=== PATIENT | female | born 1990 | race Caucasian/White ===

== ENCOUNTER 2021-04-22 14:56 | Outpatient (CLI) | payer OTHER, SELFPAY ==
[2021-04-22 15:35] LABS: Anion Gap 8 mmol/L (8-16); Blood Urea Nitrogen 7 mg/dL (7-17); Calcium 8.9 mg/dL (8.4-10.2); Carbon Dioxide 24 mmol/L (22-30); Chloride 101 mmol/L (98-107); Estimated Glomerular Filt Rate > 60; Glucose 84 mg/dL (65-110); Potassium 3.8 mmol/L (3.4-5.0); Sodium 133 mmol/L (137-145)
== END 2021-04-22 14:57 | disposition home or self-care (01) ==
LOC: ANHSURGERY 15:01
PROVIDERS: Anesthesiology; Visit Provider Obstetrics & Gynecology
DX: E11.9 Type 2 diabetes mellitus without complications (principal); Z01.818 Encounter for other preprocedural examination
CPT/HCPCS: 36415; 80048

== ENCOUNTER 2021-04-30 00:32 | Day surgery (SDC) | payer OTHER, SELFPAY ==
[2021-04-22 10:53] VITALS: BMI 40.6
--- NOTE | 2021-04-22 11:08 | PC.NURSE ---
Report to the Outpatient Waiting Room, entrance under the green pavilion located off [facility], at time 7:30 on date 04/30/21. OR Time: 9:30. - You will be asked a series of questions to screen for COVID 19 for your protection. - A mask is required within the hospital. - No visitors are allowed at this time. Patient visitors will be guided where to wait when not with patient. Preoperative COVID Testing Requirements: No COVID Test needed if: (proof is required; if not received patient will have Rapid Test prior to entry) - Patient has received COVID Vaccine at least 14 days prior to procedure date or - Patient has positive COVID test result within last 90 days of surgery date. COVID Test needed if above criteria is not met Patients may have clear liquids (water, carbonated beverages, clear teas, apple juice) until 3 hours prior to surgery (6:30) with a maximum of 20 ounces. - No food from midnight until time of surgery Take the following medications with a SIP of water the morning of surgery: LEVOTHYROXINE Medications to discontinue per physician: N/A Date to take last dose: N/A Please no make-up, nail frisian, hairspray, perfume, deodorant, or body powder the day of surgery. No jewelry (including any body piercings) or valuables the day of surgery, leave them at home. Please take a shower or bath the night before, or the morning of, surgery with an antibacterial soap. Wear comfortable, loose fitting clothing. - Jewelry must be removed prior to entering the operating room. Rings and piercings that are not removed may be cut off. - The hospital will not accept responsibility for valuables. - Please leave all valuables, including medications, at home the day of surgery. If you are going home after surgery, a licensed dedicated truck driver must drive you home. - NO public transportation without another adult. - We recommend that an adult stay with you for 24 hours following discharge. - We also recommend that you do not drive, make important decision, drink alcoholic beverages, or take any drugs that were not prescribed by your health care provider for at least 24 hours after your discharge time. Follow any additional instructions given to you from your surgeon. Telephone instructions given to NIKITA MAS and asked if any additional questions and then verbalized understanding. Patient advised to call surgeon office or pre surgery nurse liaison [phone] if any additional questions.
[2021-04-30 07:55] VITALS: BP 145/91; PULSE 105; RESP 20; TEMP 36.4; O2SAT 96
[2021-04-30] MEDS: ACETAMINOPHEN 500 MG TABLET 1000 MG PO (08:24)
[2021-04-30] MEDS: LACTATED RINGERS 1,000 ML 30 ML IV CONT (08:35)
--- NOTE | 2021-04-30 08:53 | P.PNAN_ITS ---
Anes - Initial Pre Proc Eval Procedure: Operation Date: 04/30/21 09:30 Proposed Procedures p Hysteroscopy with Endometrial Ablation - Hetal Claudio MD Date/Time: 04/30/21 08:53 Surgeon: Hetal Claudio MD Pre Op Diagnosis: menometrorrhagia, severe obesity Patient Data Age: 31 Gender: F Height: 1.75 m Weight: 125 kg Allergies Allergy/AdvReac Type Severity Reaction Status Date / Time clindamycin Allergy Severe SWELLING Verified 04/30/21 08:24 OF TONGUE doxycycline Allergy Severe Hives Verified 04/30/21 08:24 lincomycin Allergy Severe Hives Verified 04/30/21 08:24 nickel Allergy Severe Hives Verified 04/30/21 08:24 Penicillins Allergy Severe Hives Verified 04/30/21 08:24 Sulfa (Sulfonamide Allergy Severe Hives Verified 04/30/21 08:24 Antibiotics) Home Medications Medication Instructions Recorded Confirmed Type levothyroxine 50 mcg PO DAILY 04/22/21 04/30/21 History metformin 500 mg PO BID 04/22/21 04/30/21 History albuterol sulfate 2 puff INHALATION PRN PRN 04/30/21 04/30/21 History Patient hx anesthesia problems: none Family hx anesthesia problems: none Results Review: All pre-operative results and documents have been reviewed as part of the pre-operative evaluation. [facility] Past Medical History Medical History Asthma Hypothyroid Social History Social History Smoking packs per day: 1 Smoking cigarettes per day: 20.0 Years smoked: 14 Smoking pack-years: 14.00 Smoking status: Former smoker Tobacco type: cigarettes Smoking end date: 04/26/17 Alcohol intake: current Drinks per week: 3 Substance use: current Substance use type: marijuana Last use: 04/21/21 Living arrangements: with roommate(s) Spiritual care concerns: No Anes - Eval Final PreProcedure Day of Procedure 04/30/21 08:53 Patient weight: morbidly obese Heart: regular rate and rhythm Lungs: clear to auscultation Airway: Mallampati scale class II Neurological: alert and oriented Last oral intake: >/= 8 hours ASA classification: III Emergent: no Anesthetic plan: proceed Anesthesia type and monitoring: general GIVS and standard monitoring Results Review: All pre-operative results and documents have been reviewed as part of the pre-operative evaluation. Informed Consent: The patient's anesthetic plan and its attendant risks and benefits were discussed with the patient/family/POA. Questions were solicited and answers provided to the satisfaction of the patient/family/POA.
[2021-04-30 10:21] LABS: Glucose Point of Care 86 mg/dl (65-105)
--- NOTE | 2021-04-30 10:26 | PM.IMHP ---
H&P: HPI History of Present Illness Date/Time: 04/30/21 10:26 Chief Complaint: bleeding Narrative: Lupe is a 31yo G0 with tubes tied already with longstanding menometrorrhagia, benign EMB, and desiring ablation. US showed arcuate uterus. She also has PCOS and DM and hypothyroidism. Review of Systems Review of Systems: All systems reviewed & are unremarkable except as noted in HPI and below PMFSH Past Medical History Medical History Asthma Hypothyroid Social History Social History Smoking packs per day: 1 Smoking cigarettes per day: 20.0 Years smoked: 14 Smoking pack-years: 14.00 Smoking status: Former smoker Tobacco type: cigarettes Smoking end date: 04/26/17 Alcohol intake: current Drinks per week: 3 Substance use: current Substance use type: marijuana Last use: 04/21/21 Living arrangements: with roommate(s) Spiritual care concerns: No Meds Home Medications and Allergies Home Medications Medication Instructions Recorded Confirmed Type levothyroxine 50 mcg PO DAILY 04/22/21 04/30/21 History metformin 500 mg PO BID 04/22/21 04/30/21 History albuterol sulfate 2 puff INHALATION PRN PRN 04/30/21 04/30/21 History Allergies Allergy/AdvReac Type Severity Reaction Status Date / Time clindamycin Allergy Severe SWELLING Verified 04/30/21 08:24 OF TONGUE doxycycline Allergy Severe Hives Verified 04/30/21 08:24 lincomycin Allergy Severe Hives Verified 04/30/21 08:24 nickel Allergy Severe Hives Verified 04/30/21 08:24 Penicillins Allergy Severe Hives Verified 04/30/21 08:24 Sulfa (Sulfonamide Allergy Severe Hives Verified 04/30/21 08:24 Antibiotics) Vital Signs Vital Signs - 24 hr 04/30/21 07:55 Temperature 97.5 F L Pulse Rate 105 H Respiratory Rate 20 Blood Pressure 145/91 H Pulse Oximetry 96 Exam Const: General: no acute distress Resp: Effort & Inspection: normal respiratory effort Auscultation: clear to auscultation bilaterally Cardio: Rate: regular rate Rhythm: regular rhythm GI: GI Palp: Yes Soft to palpation Extrem: General: normal to inspection Assessment and Plan Assessment and plan (1) Menometrorrhagia: Code(s): N92.1 - Excessive and frequent menstruation with irregular cycle Status: Acute Additional Plan Discussed RBA of procedure. Discussed risk of failure of procedure, kaylie with arcuate uterus, but she desires to proceed. Consented for HSC and Kamila endometrial ablation.
--- NOTE | 2021-04-30 10:28 | WPDHPUPDATE1 ---
History and Physical Update Update Date/Time: 04/30/21 10:28 History and Physical has been reviewed, including an updated exam of the patient. There are NO changes in the patient's condition. Risks, benefits, and alternatives have been discussed and questions answered. Patient agrees to proceed with procedure.
[2021-04-30] MEDS: BUPIVACAINE/EPINEPHRINE 0.25% 10 ML VIAL INFILTRATE (10:48)
--- NOTE | 2021-04-30 11:03 | W.PM.PROC2 ---
Procedure Note - Detailed Date of Procedure 04/30/21 Pre-op Diagnosis menometrorrhagia Post-op Diagnosis same Procedure Performed Hysteroscopy and Kamila endometrial ablation Surgeon Hetal Claudio MD Porcelain Mixer none Anesthesia MAC and local Indications menorrhagia and/or menometrorrhagia Findings normal uterine cavity Description of Procedure The patient was taken to the operating room and placed in supine position. She received MAC anesthesia and was placed in dorsal lithotomy position in stirrups. A speculum was placed and the anterior lip of the cervix was grasped with a single tooth tenaculum. A paracervical block of 10cc of 0.25% marcaine with epinephrine was done. The cervix sounded to 8.5cm and the cervix was 4cm long, giving a uterine cavity length of 4.5cm. The Kamila device was set to this length. The cervix was sequentially dilated to an 8 Stephani. The hysteroscope was inserted and the cavity visualized and appeared to be normal. The scope was removed and the Kamila device inserted through the cervix easily. The balloon was inflated to attain a cervical seal. The device was activated and passed the cavity assessment. It ablated for 2 minutes. The device was removed, the hysteroscope was reinserted and the endometrium was noted to be blanched appropriately. The scope was once again removed. The tenaculum was removed and the cervix was made hemostatic with pressure. The speculum was removed. The patient was awakened from anesthesia and taken to the recovery room in stable condition. Estimated Blood Loss 5 Drains No Packing No Pathology none sent Complications No immediate complications Condition stable Disposition same day
[2021-04-30 11:07] VITALS: BP 123/86; PULSE 87; RESP 16; O2SAT 98
[2021-04-30 11:30] VITALS: BP 126/88; PULSE 87; RESP 18; O2SAT 99
[2021-04-30 11:45] VITALS: BP 165/90; PULSE 79; RESP 18
== END 2021-04-30 11:52 | disposition home or self-care (01) ==
PROVIDERS: Visit Provider Obstetrics & Gynecology
PROC: 0U5B8ZZ Destruction of Endometrium, Via Natural or Artificial Opening Endoscopic (ICD-10-PCS; CPT 58563; principal; 2021-04-30 09:30)
DX: N92.1 Excessive and frequent menstruation with irregular cycle (principal); E28.2 Polycystic ovarian syndrome; E11.9 Type 2 diabetes mellitus without complications; E03.9 Hypothyroidism, unspecified; J45.909 Unspecified asthma, uncomplicated; Z79.51 Long term (current) use of inhaled steroids; Z79.84 Long term (current) use of oral hypoglycemic drugs; F12.90 Cannabis use, unspecified, uncomplicated; Z87.891 Personal history of nicotine dependence; E66.01 Morbid (severe) obesity due to excess calories; Z68.41 Body mass index [BMI] 40.0-44.9, adult
CPT/HCPCS: 58563; 36415; 80048; 82948; A9270; J2250; J2704; J3010; J7030; J7120